=== PATIENT | female | born 1990 | race Caucasian/White ===

== ENCOUNTER 2016-09-25 08:43 | Outpatient (CLI) | payer OTHER ==
[2016-09-25 10:01] LABS: eGFR (African) > 60; eGFR (Non-African) > 60
[2016-09-25 15:51] LABS: T3 TOTAL 104.5 ng/dL (80.0-200.0)
== END 2016-09-25 08:44 ==
LOC: LAB 08:43
PROVIDERS: ATTEND Nurse Practitioner Psychiatric/Mental Health
DX: Z51.81 Encounter for therapeutic drug level monitoring (principal); Z79.899 Other long term (current) drug therapy
CPT/HCPCS: 36415; 80053; 80164; 84439; 84443; 84480; 84484

== ENCOUNTER 2016-10-23 08:42 | Outpatient (CLI) | payer OTHER ==
[2016-10-23 09:44] LABS: eGFR (African) > 60; eGFR (Non-African) > 60
== END 2016-10-23 08:44 ==
LOC: LAB 08:42
PROVIDERS: ATTEND Nurse Practitioner Psychiatric/Mental Health
DX: Z51.81 Encounter for therapeutic drug level monitoring (principal); Z79.899 Other long term (current) drug therapy
CPT/HCPCS: 36415; 80053; 80061; 82525

== ENCOUNTER 2016-11-25 09:05 | Outpatient (CLI) | payer OTHER ==
[2016-11-25 10:10] LABS: eGFR (African) > 60; eGFR (Non-African) > 60
== END 2016-11-25 09:06 ==
LOC: LAB 09:05
PROVIDERS: ATTEND Nurse Practitioner Psychiatric/Mental Health
DX: Z51.81 Encounter for therapeutic drug level monitoring (principal); Z79.899 Other long term (current) drug therapy; I10 Essential (primary) hypertension
CPT/HCPCS: 36415; 80053

== ENCOUNTER 2017-01-04 14:52 | Outpatient (CLI) | payer OTHER | END 2017-01-04 14:53 | LOC: RAD 14:52 | PROVIDERS: ATTEND Family Medicine | DX: Z79.899 Other long term (current) drug therapy (principal); R74.8 Abnormal levels of other serum enzymes | CPT/HCPCS: 77080 ==

== ENCOUNTER 2017-01-22 09:49 | Outpatient (CLI) | payer OTHER ==
[2017-01-22 10:16] LABS: BASOPHILS % 0.7 (0.0-1.5); EOSINOPHILS % 1.2 % (0.0-6.8); MEAN CORPUSCULAR HEMOGLOBIN 33.5 pg (28.0-34.0); MEAN CORPUSCULAR VOLUME 100.1 fl (80.0-100.0); MONOCYTES % 6.4 % (0.0-11.0); NEUTROPHILS # 2.6 # k/uL (1.4-7.7)
== END 2017-01-22 09:50 ==
LOC: LAB 09:49
PROVIDERS: ATTEND Nurse Practitioner Psychiatric/Mental Health
DX: Z51.81 Encounter for therapeutic drug level monitoring (principal)
CPT/HCPCS: 36415; 82525; 84484; 85025

== ENCOUNTER 2017-03-26 09:15 | Outpatient (CLI) | payer OTHER | END 2017-03-26 09:25 | LOC: LAB 09:15 | PROVIDERS: ATTEND Nurse Practitioner Psychiatric/Mental Health | DX: Z51.81 Encounter for therapeutic drug level monitoring (principal) | CPT/HCPCS: 36415; 80164 ==

== ENCOUNTER 2017-06-25 08:52 | Outpatient (CLI) | payer OTHER ==
[2017-06-25 09:24] LABS: BASOPHILS % 0.5 (0.0-1.5); EOSINOPHILS % 2.7 % (0.0-6.8); MEAN CORPUSCULAR HEMOGLOBIN 31.7 pg (28.0-34.0); MEAN CORPUSCULAR VOLUME 96.3 fl (80.0-100.0); MONOCYTES % 5.8 % (0.0-11.0); NEUTROPHILS # 4.3 # k/uL (1.4-7.7)
[2017-06-25 09:58] LABS: eGFR (African) > 60; eGFR (Non-African) > 60
== END 2017-06-25 08:53 ==
LOC: LAB 08:52
PROVIDERS: ATTEND Nurse Practitioner Psychiatric/Mental Health
DX: Z51.81 Encounter for therapeutic drug level monitoring (principal); Z79.899 Other long term (current) drug therapy
CPT/HCPCS: 36415; 80053; 85025

== ENCOUNTER 2017-09-24 08:52 | Outpatient (CLI) | payer OTHER ==
[2017-09-24 10:22] LABS: BASOPHILS % 0.7 (0.0-1.5); EOSINOPHILS % 1.7 % (0.0-6.8); MEAN CORPUSCULAR HEMOGLOBIN 32.4 pg (28.0-34.0); MEAN CORPUSCULAR VOLUME 98.5 fl (80.0-100.0); MONOCYTES % 5.3 % (0.0-11.0); NEUTROPHILS # 2.1 # k/uL (1.4-7.7)
[2017-09-24 10:52] LABS: eGFR (African) > 60; eGFR (Non-African) > 60
== END 2017-09-24 08:53 ==
LOC: LAB 08:52
PROVIDERS: ATTEND Nurse Practitioner Psychiatric/Mental Health
DX: Z79.899 Other long term (current) drug therapy (principal); Z51.81 Encounter for therapeutic drug level monitoring
CPT/HCPCS: 36415; 80053; 80061; 80164; 82525; 84443; 84484; 85025

== ENCOUNTER 2018-03-30 08:07 | Outpatient (CLI) | payer OTHER ==
[2018-03-30 09:34] LABS: BASOPHILS % 0.3 (0.0-1.5); EOSINOPHILS % 1.4 % (0.0-6.8); MEAN CORPUSCULAR HEMOGLOBIN 30.4 pg (28.0-34.0); MEAN CORPUSCULAR VOLUME 96.3 fl (80.0-100.0); MONOCYTES % 5.8 % (0.0-11.0); NEUTROPHILS # 3.2 # k/uL (1.4-7.7)
[2018-03-30 09:38] LABS: eGFR (African) > 60; eGFR (Non-African) > 60
== END 2018-03-30 08:10 ==
LOC: LAB 08:07
PROVIDERS: ATTEND Psychiatry & Neurology Psychiatry
DX: Z51.81 Encounter for therapeutic drug level monitoring (principal); Z79.899 Other long term (current) drug therapy
CPT/HCPCS: 36415; 80053; 80164; 85025

== ENCOUNTER 2018-09-11 10:06 | Emergency (ER) | payer MEDICAID, OTHER ==
--- NOTE | 2018-09-11 10:47 | ED Physician Documentation ---
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 Pt is non-verbal. Staff is concerned about a L ankle injury.) - ROS CONST: other (Non-verbal pt cannot give ROS) - PAST HX Past History: other (MR, hypothyroidism, Anxity/depression, seizures, sleep apnea) Allergies/Adverse Reactions: Allergies Allergy/AdvReac Type Severity Reaction Status Date / Time No Known Drug Allergies Allergy Unverified 01/23/14 18:22 Home Medications: Ambulatory Orders Medication Instructions Recorded Bupropion HCl [Wellbutrin] 75 mg PO DAILY u2 01/23/14 Cholecalciferol (Vitamin D3) 2,000 unit PO DAILY av 01/23/14 [Vitamin D] Fluoxetine HCl [Prozac] 20 mg PO DAILY av 01/23/14 Levothroid 100 mcg PO DAILY u2 01/23/14 Miconazole Nitrate [Monistat 3] 1 each VG HS PRN 01/23/14 Norgestimate-Ethinyl Estradiol 1 each PO DAILY u2 01/23/14 [Ortho Tri-Cyclen] Risperidone [Risperdal] 1 mg PO BID u2 01/23/14 Risperidone [Risperdal] 2 mg PO HS u2 01/23/14 - SOCIAL HX Smoking History: non-smoker - FAMILY HX Family History: No - REVIEWED ASSESSMENTS Nursing Assessment Reviewed: Yes Vitals Reviewed: Yes Progress - Progress Progress: X-ray L ankle: The left ankle is swollen without fracture, dislocation, arthropathy, or focal bone lesion. Air splint NSAIDS ED Results Lab/Radiology - Orders Orders: ED Orders Category Date Time Status LEFT ANKLE [ANKLE 3 VIEWS OR MORE] [RAD] Stat Exams 09/11/18 Ordered General Adult Physical Exam - PHYSICAL EXAM GENERAL APPEARANCE: no distress EENT: RUBÉN, other (ecchymosis L eye, s/p fall) NECK: normal inspection, supple RESPIRATORY: no resp distress, chest non-tender, breath sounds normal CVS: reg rate & rhythm, heart sounds normal BACK: normal inspection SKIN: warm/dry, other (ecchymosis L eye) EXTREMITIES: other (tenderness L ankle, mild swelling) NEURO: motor nml, sensation nml, other (Basline ms, non-verbal pt) Discharge Clincal Impression: Ankle sprain Qualifiers: Encounter type: initial encounter Involved ligament of ankle: unspecified ligament Laterality: left Qualified Code(s): S93.402A - Sprain of unspecified ligament of left ankle, initial encounter Referrals: Blanka Gloria MD [Primary Care Provider] - Condition: Stable Disposition: 01 HOME, SELF-CARE Decision to Admit: NO Decision Time: 11:09
[2018-09-11 11:01] VITALS: BP 111/82
--- NOTE | 2018-09-11 11:33 | Diagnostic Imaging Report ---
BRANNON HOOVER [facility] [address] [facility] [address] 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 Electronically signed on Sep 11, 2018 10:56:59 AM GRISTMILL OPERATOR by: Kade LOPEZ
== END 2018-09-11 11:00 | disposition home or self-care (01) ==
LOC: ED 10:06
DX: S93.402A Sprain of unspecified ligament of left ankle, initial encounter (principal); W08.XXXA Fall from other furniture, initial encounter; Y93.9 Activity, unspecified; Y92.099 Unspecified place in other non-institutional residence as the place of occurrence of the external cause
CPT/HCPCS: 29515; 73610; 99282; 99283